=== PATIENT | female | born 2000 | race American Indian/Alaskan Native ===

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

== ENCOUNTER 2019-08-16 11:24 | Emergency (ER) | payer OTHER, MEDICAID ==
[~2019-08-16] VITALS: Ht 170.2 cm; Wt 132.5 kg
[~2019-08-16 11:24] MED LIST changes: +CYCL-1 PO
[2019-08-16 11:39] VITALS: BP 124/73
[2019-08-16] MEDS ORDERED: ketorolac tromethamine 15mg/ml inj. IM ONE (12:25)
[2019-08-16 13:16] LABS: D-DIMER 0.26 MG/L FEU (0-0.50)
== END 2019-08-16 13:31 | disposition home or self-care (01) ==
LOC: ER 11:25
DX: R07.89 Other chest pain (principal); M25.511 Pain in right shoulder; J45.909 Unspecified asthma, uncomplicated; F31.9 Bipolar disorder, unspecified; F12.90 Cannabis use, unspecified, uncomplicated; Z98.890 Other specified postprocedural states
CPT/HCPCS: 36415; 71045; 85379; 96372; 99284; J1885

== ENCOUNTER 2019-09-27 09:38 | Emergency (ER) | payer MEDICAID, OTHER ==
[~2019-09-27] VITALS: Ht 170.2 cm; Wt 119.0 kg
[~2019-09-27 09:38] MED LIST changes: +ARIP5TAB14 PO; -ARIP5TAB4 PO
[2019-09-27 09:55] VITALS: BP 152/82
[2019-09-27] MEDS ORDERED: LIDOcaine 1% W/epiNEPHrine 1:200,000 10ml vial IJ ONE (12:30)
[2019-09-27] MEDS ORDERED: LIDOcaine 1% w/EPI 1:200,000 injection 10mL vial IM ONE (12:30)
[2019-09-27] MEDS ORDERED: LIDOcaine 1% w/epiNEPHrine 1:200,000 30ml vial IM ONE (13:30)
[2019-09-27] MEDS ORDERED: ACET-3067 PO (14:09)
[2019-09-27] MEDS ORDERED: SULF1TAB49 PO (14:09)
[2019-09-27] MEDS ORDERED: CEPH500C5 PO (14:09)
== END 2019-09-27 14:57 | disposition home or self-care (01) ==
LOC: ER 09:39
DX: L02.215 Cutaneous abscess of perineum (principal); J45.909 Unspecified asthma, uncomplicated; F31.9 Bipolar disorder, unspecified; F32.9 Major depressive disorder, single episode, unspecified; F12.90 Cannabis use, unspecified, uncomplicated; Z88.0 Allergy status to penicillin; Z79.2 Long term (current) use of antibiotics; Z79.899 Other long term (current) drug therapy
CPT/HCPCS: 56405; 99284